=== PATIENT | male | born 1955 | race Caucasian/White ===

== ENCOUNTER 2017-05-05 07:38 | Emergency (ER) | payer SELFPAY ==
[~2017-05-05] VITALS: Ht 170.2 cm; Wt 70.3 kg
[2017-05-05 07:43] VITALS: Ht 170.2 cm; Wt 70.3 kg
[2017-05-05 09:14] VITALS: BP 133/90
== END 2017-05-05 09:14 | disposition home or self-care (01) ==
LOC: ED 07:38
DX: J20.9 Acute bronchitis, unspecified (principal)
CPT/HCPCS: J7613; J7644